=== PATIENT | male | born 1980 | race Caucasian/White ===

== ENCOUNTER 2019-12-05 16:47 | Emergency (ER) | payer MEDICAID ==
[~2019-12-05] VITALS: Ht 182.9 cm; Wt 80.0 kg
[2019-12-05] MEDS ORDERED: HYDROCODONE/ACETAMINOPHEN 5/325MG TABLET PO ONE (17:30)
[2019-12-05] MEDS ORDERED: TETANUS, DIPHTHERIA, PERTUSSIS VAC/PF 0.5ML (>7YR OLD) IM ONE (17:30)
[2019-12-05] MEDS ORDERED: LIDOCAINE HCL 1% 20ML VIAL (Pyxis) INJ INFIL ONE (18:30)
[2019-12-05 20:15] VITALS: BP 128/65
== END 2019-12-05 20:35 | disposition home or self-care (01) ==
LOC: ER 16:47
DX: S41.112A Laceration without foreign body of left upper arm, initial encounter (principal); S50.11XA Contusion of right forearm, initial encounter; W01.0XXA Fall on same level from slipping, tripping and stumbling without subsequent striking against object, initial encounter; Y93.89 Activity, other specified; Y92.89 Other specified places as the place of occurrence of the external cause
CPT/HCPCS: 12004; 73030; 73060; 73090; 90471; 90715; 99284